=== PATIENT | male | born 1960 | race Caucasian/White ===

== ENCOUNTER 2020-04-11 08:45 | Emergency (ER) | payer OTHER ==
[~2020-04-11] VITALS: Ht 182.9 cm; Wt 112.0 kg
[2020-04-11] MEDS ORDERED: LISI-538 PO (08:51)
[2020-04-11] MEDS ORDERED: NS 1,000 ML IV SCH (09:08)
[2020-04-11 09:20] LABS: BASO # 0.1 10^3/uL (0.0-0.2); BASO % 0.8 % (0.0-1.0); EOS # 0.1 10^3/uL (0.0-0.5); HEMATOCRIT 45.4 % (42.0-52.0); LYMPH # 1.8 10^3/uL (1.5-5.0); LYMPH % 28.9 % (24.0-44.0); MEAN CORPUSCULAR HEMOGLOBIN 31.4 pg (27.0-33.0); MONO # 0.5 10^3/uL (0.0-0.8); MONO % 7.2 % (0.0-5.0); NEUTROPHILS # 3.9 10^3/uL (1.5-8.5); NEUTROPHILS % 61.6 % (36.0-66.0); PLATELET COUNT, AUTOMATED 221 10^3/uL (150-450); RED BLOOD COUNT 4.78 10^6/uL (4.30-6.10); WHITE BLOOD COUNT 6.3 10^3/uL (4.0-10.0)
--- NOTE | 2020-04-11 09:50 | REP ---
Head CT without contrast: History: Dizziness. Comparison study: No comparison study. CT findings: Bone window settings demonstrate an intact bony calvarium. There is no evidence of skull fracture or incidental bony calvarial lesion. The visualized paranasal sinuses appear clear. No intraorbital abnormality is seen. On soft tissue window setting images; the lateral, third, and fourth ventricles are normal in size and position. Neil-white differentiation pattern is normal above and below the tentorium. There are is no evidence of intracranial hemorrhage. No mass, edema, infarction, or midline shift is seen. No extra-axial fluid collection is appreciated. Impression: Negative noncontrast head CT. Electronically Signed by Murray Mensah MD 04/11/2020 09:47 A
[2020-04-11 09:51] LABS: ALBUMIN 3.7 GM/DL (3.2-5.2); ALT/SGPT 38 U/L (12-78); BILIRUBIN,DIRECT 0.1 MG/DL (0.0-0.2); BILIRUBIN,TOTAL 0.6 MG/DL (0.2-1.0); BLOOD UREA NITROGEN 11 MG/DL (7-18); CALCIUM LEVEL 9.3 MG/DL (8.5-10.1); CARBON DIOXIDE LEVEL 26 MEQ/L (21-32); CHLORIDE LEVEL 106 MEQ/L (98-107); CK-MB VALUE MASS < 1.0 NG/ML (<3.6); CPK CREATINE PHOSPHOKINASE 87 U/L (39-308); CREATININE FOR GFR 1.02 MG/DL (0.70-1.30); FREE T4 1.14 NG/DL (0.76-1.46); GLOMERULAR FILTRATION RATE > 60.0 (>56); GLUCOSE, FASTING 141 MG/DL (70-100); MB/CK RELATIVE INDEX 1.15 (< OR =4); POTASSIUM SERUM 4.1 MEQ/L (3.5-5.1); SODIUM LEVEL 138 MEQ/L (136-145); TOTAL PROTEIN 7.4 GM/DL (6.4-8.2); TROPONIN I < 0.02 NG/ML (< 0.10)
--- NOTE | 2020-04-11 10:10 | REP ---
CHEST X-RAY: Two views. HISTORY: Near syncope. COMPARISON STUDY: No comparison. FINDINGS: The lungs are well inflated and free of infiltrate. The pleural angles are sharp. The heart size is normal. Pulmonary vasculature is not increased. No significant bony abnormality is seen. Monitoring electrodes are visible. IMPRESSION: Negative chest x-ray. Electronically Signed by Murray Mensah MD 04/11/2020 10:55 A
[2020-04-11 10:30] VITALS: BP 142/69
--- NOTE | 2020-04-12 06:14 | ECGEPIP ---
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
== END 2020-04-11 10:55 | disposition home or self-care (01) ==
LOC: M ED 08:45
DX: R55 Syncope and collapse (principal); I10 Essential (primary) hypertension; Z79.899 Other long term (current) drug therapy